=== PATIENT | female | born 1970 | race Caucasian/White ===

== ENCOUNTER → 2017-03-27 | Outpatient (CLI) | payer BC ==
[~2017-03-27] MED LIST: DCS100C PO; Estradiol PO; HYDR-3720 PO; Ibuprofen PO; LEVO112T24 PO
--- NOTE | 2017-03-27 19:26 | Diagnostic Imaging Report ---
Bilateral screening mammogram 2D views with tomosynthesis. The current study was also evaluated with a Computer Aided Detection (CAD) system. INDICATION: Screening. No current complaints stated on the questionnaire. COMPARISON: 03/07/16. FINDINGS: The breasts are composed of scattered fibroglandular densities. Occasional benign-appearing calcifications are seen. Allowing for technique and positional differences, no suspicious change is seen. IMPRESSION: No significant change. ACR BI-RADS Category 2: Benign findings. Result letter will be mailed to the patient. Note: At least 10% of breast cancer is not imaged by mammography. Dictated by: Dictated on workstation # [id number]
== END ==
LOC: RAD 07:32
PROVIDERS: ATTEND Obstetrics & Gynecology
DX: Z12.31 Encounter for screening mammogram for malignant neoplasm of breast (principal)
CPT/HCPCS: 77067

== ENCOUNTER → 2018-04-06 | Outpatient (CLI) | payer BC ==
--- NOTE | 2018-04-06 10:48 | Diagnostic Imaging Report ---
Indication: Routine screening. Comparison is made to prior study from 03/27/2017 and 03/07/2016. 2-D and 3-D bilateral screening mammography was performed CAD. Scattered fibroglandular densities are identified bilaterally. The frontal pattern is stable. No mass or malignant appearing microcalcifications are seen. There are benign calcific lesion present. Axillae are unremarkable. Impression: BI-RADS category 2 No mammographic features suspicious for malignancy are identified. ACR BI-RADS Category 2: Benign findings. Result letter will be mailed to the patient. Note: At least 10% of breast cancer is not imaged by mammography. Dictated by: Dictated on workstation # [id number]
== END ==
LOC: RAD 07:28
PROVIDERS: ATTEND Obstetrics & Gynecology
DX: Z12.31 Encounter for screening mammogram for malignant neoplasm of breast (principal)
CPT/HCPCS: 77067

== ENCOUNTER 2019-04-01 05:39 | Outpatient (CLI) | payer BC ==
[~2019-04-01] VITALS: Ht 160 cm; Wt 83.9 kg
[2019-04-01] MEDS ORDERED: ESTR2TAB PO (15:35)
[2019-04-01] MEDS ORDERED: LEVO100T7 PO (15:35)
== END 2019-04-01 15:39 | disposition home or self-care (01) ==
LOC: PREOP 05:39
PROVIDERS: ATTEND Internal Medicine
DX: Z01.818 Encounter for other preprocedural examination (principal)

== ENCOUNTER 2019-04-06 07:00 | Day surgery (SDC) | payer BC ==
[2019-04-06] VITALS (8 sets, daily range): BP systolic 101–126; BP diastolic 57–71
[~2019-04-06] VITALS: Ht 160 cm; Wt 83.9 kg
[~2019-04-06 07:00] MED LIST changes: +ESTR2TAB PO; +LEVO100T7 PO
[2019-04-06] MEDS ORDERED: LACTATED RINGERS 1,000 ML IV ONE (07:10)
[2019-04-06] MEDS ORDERED: LACTATED RINGERS 1,000 ML IV STA (07:13)
[2019-04-06] MEDS ORDERED: LIDOCAINE JELLY 2% 6 ML SYRINGE MM PRN (07:15)
[2019-04-06] MEDS ORDERED: MIDAZOLAM 2 MG/2 ML (VERSED) VIAL ONE (07:16)
[2019-04-06] MEDS ORDERED: PROPOFOL INJECTION 50 ML IV ONE (07:16)
--- NOTE | 2019-04-06 07:34 | Pre-Op Note & Conscious Sedat ---
Pre-Operative Progress Note H&P Reviewed The H&P was reviewed, patient examined and no changes noted. Date H&P Reviewed: Apr 06, 2019 Time H&P Reviewed: 07:25 Conscious Sedation Pre-Proced ASA Score 2 For ASA 3 and 4: Consider anesthesia and medical clearance. Also, for patients with a history of failed moderate sedation consider anesthesia. Airway Lungs Heart ASA score ASA 1: a normal healthy patient ASA 2: a patient with a mild systemic disease (mid diabetes, controlled hypertension, obesity ASA 3: a patient with a severe systemic disease that limits activity (angina, COPD, prior Myocardial infarction) ASA 4: a patient with an incapacitating disease that is a constant threat to life (CHF, renal failure) ASA 5: a moribund patient not expected to survive 24 hrs. (ruptured aneurysm) ASA 6: a declared brain- patient whose organs are being harvested. For emergent operations, add the letter E after the classification Mallampati Classification Grade 2 Sedation Plan Analgesia, Amnesia, Plan communicated to team members, Discussed options with patient/fam, Discussed risks with patient/fam The patient is an appropriate candidate to undergo the planned procedure, sedation, and anesthesia. The patient immediately re-assessed prior to indication. JOMAR FRENCH MD Apr 06, 2019 07:34
--- NOTE | 2019-04-06 08:50 | NUR ---
ALERT, TAKING PO FLUIDS AND PASSING FLATUS WITHOUT PROBLEM.
--- NOTE | 2019-04-06 11:54 | Anesthesia-General Post-Op ---
MAC Patient Condition Mental Status/LOC: Same as Preop Cardiovascular: Satisfactory Nausea/Vomiting: Absent Respiratory: Satisfactory Pain: Controlled Complications: Absent Post Op Complications Complications None Follow Up Care/Instructions Patient Instructions None needed. Anesthesiology Discharge Order Discharge Order Patient is doing well, no complaints, stable vital signs, no apparent adverse anesthesia problems. No complications reported per nursing. DENISSE MOJICA CRNA Apr 06, 2019 11:54
--- NOTE | 2019-04-06 12:56 | OPERATIVE REPORT ---
DATE OF SERVICE: 04/06/2019 COLONOSCOPY SUMMARY INDICATION FOR THE PROCEDURE: Screening colonoscopy. PROCEDURE IN DETAIL: The patient was placed in the left lateral decubitus position. Prior to undergoing colonoscopy, digital rectal evaluation was performed. Anal sphincter tone was normal and the perianal reflexes intact. No abnormalities were noted to digital inspection of the anal canal or distal rectal vault. The colonoscope was then inserted into the rectum and under direct visualization advanced to cecum. The cecum was identified by identification of the ileocecal valve and cecal strap as well as appendiceal orifice. Photographic documentation was obtained. Careful inspection was made as colonoscope withdrawn. The quality of prep was good. FINDINGS: There was no evidence for internal or external hemorrhoids. The rectum, sigmoid colon, descending colon, transverse colon, ascending colon and cecum were unremarkable with no evidence for neoplasia, diverticular disease, vascular malformation or inflammatory change. ASSESSMENT: Normal colonoscopy to the cecum. As the patient is not aware of any family history for colon polyps or cancer, we would advocate consideration for repeat screening colonoscopy in 10 years. Job ID: [id number] DocumentID: [id number] Dictated Date: 04/06/2019 08:07:24 Bat Carrier Date: 04/06/2019 12:55:55 Dictated By: JOMAR FRENCH MD
--- NOTE | 2019-04-12 10:06 | HISTORY AND PHYSICAL ---
COLONOSCOPY HISTORY AND PHYSICAL DATE OF ADMISSION: 04/09/2019. HISTORY OF PRESENT ILLNESS: The patient is a 48-year-old white female, referred by Dr. Sanches for her first screening colonoscopy. She is deemed to be of average risk as she is not aware of any family history for colon cancer, polyps or inflammatory bowel disease. She denies abdominal pain or change in bowel habit. PAST MEDICAL HISTORY: Significant for surgically induced hypothyroidism, post-thyroidectomy performed in 2002 poorly without evidence for malignancy. MEDICATIONS ON ADMISSION: Include: 1. L-thyroxine 100 mcg daily. 2. Estradiol 2 mg daily. PAST SURGICAL HISTORY: Is significant for total abdominal hysterectomy for cervical MAXIME 2 done in 2013. She had thyroidectomy in 2002. FAMILY HISTORY: Mother is living at the age of 73 with no health problems. Father at the age of 72 with complications from type 2 diabetes. He also had prostate cancer and coronary artery disease. 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 REVIEW OF SYSTEMS: CONSTITUTIONAL: She denies night sweats, chills, fever or change in weight. CARDIOVASCULAR: She denies chest pain, presyncope, syncope, heart racing or palpitation. PULMONARY: She denies shortness of breath, cough or problems with wheezing. She denies chest pain. PHYSICAL EXAMINATION: GENERAL: Reveals a white female, appears to be in no acute distress. VITAL SIGNS: Weight is 188.2 pounds, blood pressure 128/68 with a heart rate of 70 and regular, respiratory rate 16 and nonlabored. HEENT: Unremarkable. Sclerae are nonicteric. No evidence for pallor is noted. NECK: Revealed no JVD, adenopathy or bruits. CHEST: Clear to auscultation. CARDIOVASCULAR: Reveals a regular rate and rhythm without murmur, S3 or S4. ABDOMEN: Soft, supple without mass, organomegaly or tenderness. No bruits are noted. EXTREMITIES: Reveal no cyanosis, clubbing or edema. ASSESSMENT AND PLAN: The patient is set up for her first screening colonoscopy, deemed to be of average risk. She is not aware of any family history for colon cancer or polyps. Prep instructions with Richard-prep kit were given and questions were answered. I thank you for the referral of this pleasant lady. Sincerely, Job ID: [id number] DocumentID: [id number] Dictated Date: 03/30/2019 08:13:11 Neon Glass Bender Date: 03/30/2019 08:25:02 Dictated By: JOMAR FRENCH MD <Dictated by JOMAR FRENCH MD> <Electronically signed by JOMAR FRENCH MD> 04/02/19 1116
== END 2019-04-06 09:00 | disposition home or self-care (01) ==
LOC: ENDO 07:00
PROVIDERS: ATTEND Internal Medicine
DX: Z12.11 Encounter for screening for malignant neoplasm of colon (principal); E03.9 Hypothyroidism, unspecified; Z90.89 Acquired absence of other organs; Z79.899 Other long term (current) drug therapy; Z90.710 Acquired absence of both cervix and uterus; Z87.410 Personal history of cervical dysplasia; Z83.3 Family history of diabetes mellitus; Z82.49 Family history of ischemic heart disease and other diseases of the circulatory system; Z80.42 Family history of malignant neoplasm of prostate

== ENCOUNTER → 2019-04-09 | Outpatient (CLI) | payer BC ==
--- NOTE | 2019-04-09 18:52 | Diagnostic Imaging Report ---
INDICATION: Routine screening. COMPARISON: Comparison is made with prior mammograms of 04/06/2018 and 03/27/2017. 2-D and 3-D bilateral screening mammography was performed. The current study was also evaluated with a Computer Aided Detection (CAD) system. 3-D tomosynthesis was also performed and reviewed. FINDINGS: Scattered fibroglandular densities are identified bilaterally. The parenchymal pattern is stable. No mass or malignant-appearing microcalcifications are seen. The axillae are unremarkable. IMPRESSION: No mammographic features suspicious for malignancy are identified. ACR BI-RADS Category 1: Negative. Result letter will be mailed to the patient. Note: At least 10% of breast cancer is not imaged by mammography. Dictated by: Dictated on workstation # [id number]
== END ==
LOC: RAD 08:06
PROVIDERS: ATTEND Obstetrics & Gynecology
DX: Z12.31 Encounter for screening mammogram for malignant neoplasm of breast (principal)
CPT/HCPCS: 77067

== ENCOUNTER → 2020-04-13 | Outpatient (CLI) | payer BC ==
--- NOTE | 2020-04-13 10:49 | Diagnostic Imaging Report ---
INDICATION: Routine screening. COMPARISON is made with prior mammograms from 04/09/2019 and 04/06/2018. 2-D and 3-D bilateral screening mammography was performed with CAD. Scattered fibroglandular densities are identified bilaterally. No spiculated mass or malignant appearing microcalcifications are seen. There are benign calcifications. There is a tiny nodular density in the outer right breast posterior depth, best seen on the CC view. This appears more prominent than on prior exam. Left breast is unremarkable. Axillae are unremarkable. IMPRESSION: BI-RADS 0. Right breast density. Additional views are recommended for further evaluation. ACR BI-RADS Category 0: Incomplete. (Needs additional imaging evaluation). Result letter will be mailed to the patient. Note: At least 10% of breast cancer is not imaged by mammography. Dictated by: Dictated on workstation # [id number]
== END ==
LOC: RAD 07:36
PROVIDERS: ATTEND Obstetrics & Gynecology
DX: Z12.31 Encounter for screening mammogram for malignant neoplasm of breast (principal); R92.8 Other abnormal and inconclusive findings on diagnostic imaging of breast
CPT/HCPCS: 77063; 77067

== ENCOUNTER → 2020-04-27 | Outpatient (CLI) | payer BC ==
--- NOTE | 2020-04-27 18:46 | Diagnostic Imaging Report ---
INDICATION: Abnormal mammogram. EXAMINATION: Right breast ultrasound, limited. FINDINGS: The screening mammogram performed on 04/13/2020 noted a small asymmetry in the lateral aspect of the right breast at posterior depth. The diagnostic mammogram performed earlier today revealed that the density seems to persist although it was difficult to identify with certainty on the true lateral view. On this exam, there is no discrete solid or cystic mass in the lateral aspect of the breast. The area in question does not have an aggressive mammographic appearance. Even so, it could represent a malignant process. If further imaging is desired, then MRI would be recommended. A stereotactic biopsy should also be considered although the lesion is only well seen on the craniocaudad projection. IMPRESSION: 1. The small asymmetry seen on the mammogram could not be clearly identified on this study. This finding does not have an aggressive appearance but the possibility it is malignant cannot be entirely excluded. Recommendations as above. 2. These results will be discussed with Dr. Rosendo Sanches. Dictated on workstation # [id number]
--- NOTE | 2020-04-28 09:31 | Diagnostic Imaging Report ---
INDICATION: Abnormal mammogram EXAMINATION: Unilateral diagnostic right mammogram The current study was also evaluated with a Computer Aided Detection (CAD) system. The screening mammogram performed on 04/13/2020 noted a small 2 x 4 mm asymmetry in the lateral aspect of the right breast. This was best visualized on the craniocaudad view. This finding is again clearly evident on the craniocaudad compression view of this exam. The density may be in the midportion of the breast on the MLO view, but this nodular density does seem to be present in the midportion of the breast on the tomographic images in the MLO projection (slice 27/71). IMPRESSION: There is a small persistent asymmetry in the upper outer aspect of the right breast. Ultrasound would be recommended for further evaluation. ACR category 0 ACR BI-RADS Category 0: Incomplete. (Needs additional imaging evaluation). Result letter will be mailed to the patient. Note: At least 10% of breast cancer is not imaged by mammography. Dictated by: Dictated on workstation # [id number]
== END ==
LOC: RAD 13:29
PROVIDERS: ATTEND Obstetrics & Gynecology
DX: N64.89 Other specified disorders of breast (principal); R92.8 Other abnormal and inconclusive findings on diagnostic imaging of breast
CPT/HCPCS: 76642; 77065; G0279

== ENCOUNTER → 2020-06-21 | Outpatient (CLI) | payer BC ==
[~2020-06-21] VITALS: Ht 160 cm; Wt 81.8 kg
[~2020-06-21] MED LIST changes: +LIDOCAINE 1% INJ 20 ML 20 ML VIAL INJ ONE
--- NOTE | 2020-06-21 12:40 | Diagnostic Imaging Report ---
INDICATION: Right breast density. Patient presents for stereotactic biopsy. Patient brought to the stereotactic suite placed in chair in the sitting upright position. Right breast was positioned craniocaudal. The nodular density in the outer posterior right breast was stereotactically targeted. The right breast was then prepped and draped in usual sterile fashion. Small amount of 1% lidocaine was utilized for local anesthesia. 8-gauge stereotactic needle was advanced from a craniocaudal approach and place with its tip per stereotactic coordinates. 4 core biopsies were obtained with the vacuum-assisted device. A marker clip was then deployed. Needle was removed and hemostasis was obtained using manual compression. Follow-up 2D cc and ML mammogram demonstrates marker clip in the outer right breast at the site of previously seen nodule. All images were viewed on dedicated workstation. IMPRESSION: Successful stereotactic biopsy of nodular density in the outer right breast. Pathology results are currently pending. Dictated by: Dictated on workstation # [id number]
== END ==
LOC: RAD 08:30
PROVIDERS: ATTEND Surgery
DX: N63.11 Unspecified lump in the right breast, upper outer quadrant (principal)
CPT/HCPCS: 19081; A4648

== ENCOUNTER → 2021-05-08 | Outpatient (CLI) | payer BC ==
[~2021-05-08] MED LIST changes: -LIDOCAINE 1% INJ 20 ML 20 ML VIAL INJ ONE
--- NOTE | 2021-05-08 10:19 | Diagnostic Imaging Report ---
Indication: Routine screening. Comparison is made with prior mammogram from 04/13/2020 and 04/09/2019. 2-D and 3-D bilateral screening mammography was performed with CAD. Scattered fibroglandular densities are identified bilaterally. The parenchymal pattern is stable. There is a biopsy clip in the right breast. No mass or malignant-appearing microcalcifications are seen. Axillae are unremarkable. IMPRESSION: BI-RADS Category 2 No mammographic features suspicious for malignancy are identified. ACR BI-RADS Category 2: Benign findings. Result letter will be mailed to the patient. Note: At least 10% of breast cancer is not imaged by mammography. Dictated by: Dictated on workstation # [id number]
== END ==
LOC: RAD 07:45
PROVIDERS: ATTEND Obstetrics & Gynecology
DX: Z12.31 Encounter for screening mammogram for malignant neoplasm of breast (principal)
CPT/HCPCS: 77063; 77067

== ENCOUNTER → 2022-06-05 | Outpatient (CLI) | payer BC ==
[~2022-06-05] MED LIST changes: -ESTR2TAB PO; +ESTR2TAB3 PO
--- NOTE | 2022-06-05 11:14 | Diagnostic Imaging Report ---
INDICATION: Routine screening. COMPARISON: 05/08/2021 and 04/13/2020. TECHNIQUE: 2D and 3D bilateral screening mammography was performed with CAD. FINDINGS: Scattered fibroglandular densities are identified bilaterally. The parenchymal pattern is stable. No mass or malignant-appearing microcalcifications are seen. A biopsy marker clip in the outer right breast is again noted. The axillae are unremarkable. IMPRESSION: No mammographic features suspicious for malignancy are identified. ACR BI-RADS Category 2: Benign findings. Result letter will be mailed to the patient. Note: At least 10% of breast cancer is not imaged by mammography. Dictated by: Dictated on workstation # [id number]
== END ==
LOC: RAD 07:45
PROVIDERS: ATTEND Obstetrics & Gynecology
DX: Z12.31 Encounter for screening mammogram for malignant neoplasm of breast (principal)
CPT/HCPCS: 77063; 77067

== ENCOUNTER → 2023-06-25 | Outpatient (CLI) | payer BC ==
--- NOTE | 2023-06-25 09:51 | Diagnostic Imaging Report ---
INDICATION: Routine screening. COMPARISON: 06/05/2022 and 05/08/2021. TECHNIQUE: 2D and 3D bilateral screening mammography was performed with CAD. FINDINGS: Scattered fibroglandular densities are identified bilaterally. The parenchymal pattern is stable. No mass or malignant-appearing microcalcifications are identified. A marker clip in the right breast is again noted. The axillae are unremarkable. IMPRESSION: No mammographic features suspicious for malignancy are identified. ACR BI-RADS Category 2: Benign findings. Result letter will be mailed to the patient. Note: At least 10% of breast cancer is not imaged by mammography. Dictated by: Dictated on workstation # [id number]
== END ==
LOC: RAD 07:30
PROVIDERS: ATTEND Obstetrics & Gynecology
DX: Z12.31 Encounter for screening mammogram for malignant neoplasm of breast (principal)
CPT/HCPCS: 77063; 77067